=== PATIENT | female | born 1930 | race Caucasian/White ===

== ENCOUNTER → 2016-09-11 | Outpatient (CLI) | payer MEDICARE, OTHER ==
[~2016-09-11] MED LIST: ALLO100T PO; AMLO5TAB2 PO; ASPI-983 PO; ASPI-999 PO; ATEN50TA PO; ATOR20TA66 PO; ATOR40TA70 PO; CARB15DR74 OU; CLOP75TA28 PO; CRAN250C2 PO; DOCU-143 PO; FAMO20TA3 PO; HYDR25TA4 PO; KETO5DRO OU; LORA10TA7 PO; LOSA100T28 PO; PEDI18TA2 PO
== END ==
LOC: RAD 12:21
PROVIDERS: ATTEND Internal Medicine Cardiovascular Disease
DX: I73.9 Peripheral vascular disease, unspecified (principal); I25.10 Atherosclerotic heart disease of native coronary artery without angina pectoris; I12.9 Hypertensive chronic kidney disease with stage 1 through stage 4 chronic kidney disease, or unspecified chronic kidney disease; N18.2 Chronic kidney disease, stage 2 (mild); E78.4 Other hyperlipidemia
CPT/HCPCS: 93923

== ENCOUNTER → 2019-05-05 | Outpatient (CLI) | payer MEDICARE, OTHER ==
[~2019-05-05] VITALS: Ht 160 cm; Wt 66.0 kg
[~2019-05-05] MED LIST changes: -AMLO5TAB2 PO; +AMLO5TAB9 PO; +CARB15DR OU; -CARB15DR74 OU; +CATHETER FLUSH 10 ML SYR IV PRN; -LOSA100T28 PO; +LOSA100T57 PO; +REGADENOSON 0.4 MG/5 ML SYR (LEXISCAN) IV ONE
[2019-05-05 13:19] VITALS: BP 218/79
== END ==
LOC: CARD 11:17
PROVIDERS: ATTEND Internal Medicine Cardiovascular Disease
DX: I34.0 Nonrheumatic mitral (valve) insufficiency (principal); I11.9 Hypertensive heart disease without heart failure; I25.10 Atherosclerotic heart disease of native coronary artery without angina pectoris; I65.23 Occlusion and stenosis of bilateral carotid arteries
CPT/HCPCS: 78452; 93017; 93306